=== PATIENT | female | born 1960 | race Asian ===

== ENCOUNTER → 2019-01-23 | Day surgery (SDC) | payer BC ==
[~2019-01-23] VITALS: Ht 160 cm; Wt 111.1 kg
[~2019-01-23] MED LIST: ACET-2178 PO; BACITRACIN 50,000 UNITS/VIAL ONE; BUPIVACAINE HCL 0.5% (5MG/ML) 50ML ONE; CEFAZOLIN SODIUM 1000MG/VIAL ONE; DEXAMETHASONE 4MG/ML 1ML VIAL ONE; FENTANYL CITRATE/PF 50MCG/ML 2ML VIAL ONE; GLYCOPYRROLATE 0.2 MG/ML 2ML VIAL ONE; HYDROMORPHONE HCL/PF 2MG/ML CPJ IV PRN; LABETALOL 5MG/ML SYR 20 MG/4 ML SYRINGE IV PRN; LIDOCAINE HCL 1% 20ML VIAL (Pyxis) INJ ONE; LOSA50TA41 PO; MEPERIDINE HCL/PF 25MG/ML CPJ IV PRN; METF-414 PO; MIDAZOLAM HCL 2 MG/2 ML VIAL ONE; NEOSTIGMINE METHYLSULFATE 1MG/ML 10 ML VIAL ONE; NORMAL SALINE 0.9% 10 ML SYR ONE; ONDANSETRON HCL 4MG/2ML INJ IV PRN; ONDANSETRON HCL 4MG/2ML INJ ONE; PROPOFOL 200MG/20ML VIAL IV ONE; ROCURONIUM BROMIDE 10MG/ML VIAL 5ML IV ONE; SKIN ADHESIVE 0.7 GM EA TOP ONE; SODIUM CHLORIDE 0.9% 1,000 ML IV SCH; SODIUM CHLORIDE 0.9% 10ML VIAL ONE
[2019-01-23 06:43] LABS: UCG SCREEN NEGATIVE
[2019-01-23 10:02] VITALS: BP 133/77
== END | disposition home or self-care (01) ==
LOC: OR 05:45
PROVIDERS: ATTEND Surgery
DX: N63.20 Unspecified lump in the left breast, unspecified quadrant (principal); D48.62 Neoplasm of uncertain behavior of left breast; I10 Essential (primary) hypertension; Z79.899 Other long term (current) drug therapy; Z79.84 Long term (current) use of oral hypoglycemic drugs
CPT/HCPCS: 19301; 81025; 88309; 88329; J0690; J1100; J1170; J2250; J2405; J2704; J3010; J3490; J2710

== ENCOUNTER 2022-05-17 20:34 | Inpatient (IN) | payer BC ==
[~2022-05-17] VITALS: Ht 160 cm; Wt 115.7 kg
[~2022-05-17 20:34] MED LIST changes: -ACET-2178 PO; -BACITRACIN 50,000 UNITS/VIAL ONE; -BUPIVACAINE HCL 0.5% (5MG/ML) 50ML ONE; -CEFAZOLIN SODIUM 1000MG/VIAL ONE; -DEXAMETHASONE 4MG/ML 1ML VIAL ONE; -FENTANYL CITRATE/PF 50MCG/ML 2ML VIAL ONE; -GLYCOPYRROLATE 0.2 MG/ML 2ML VIAL ONE; -HYDROMORPHONE HCL/PF 2MG/ML CPJ IV PRN; -LABETALOL 5MG/ML SYR 20 MG/4 ML SYRINGE IV PRN; -LIDOCAINE HCL 1% 20ML VIAL (Pyxis) INJ ONE; -MEPERIDINE HCL/PF 25MG/ML CPJ IV PRN; -MIDAZOLAM HCL 2 MG/2 ML VIAL ONE; -NEOSTIGMINE METHYLSULFATE 1MG/ML 10 ML VIAL ONE; -NORMAL SALINE 0.9% 10 ML SYR ONE; -ONDANSETRON HCL 4MG/2ML INJ IV PRN; -ONDANSETRON HCL 4MG/2ML INJ ONE; -PROPOFOL 200MG/20ML VIAL IV ONE; -ROCURONIUM BROMIDE 10MG/ML VIAL 5ML IV ONE; -SKIN ADHESIVE 0.7 GM EA TOP ONE; -SODIUM CHLORIDE 0.9% 1,000 ML IV SCH; -SODIUM CHLORIDE 0.9% 10ML VIAL ONE; +TOPUD PO
[2022-05-17] MEDS ORDERED: ASPIRIN 81MG TABLET PO ONE (21:15)
[2022-05-17 21:18] LABS: BASOPHILS % 0.7 % (0.0-2.0); EOSINOPHILS % 2.9 % (0.0-5.0); HEMATOCRIT. 34.5 % (36.0-48.0); HEMOGLOBIN. 10.6 g/dL (12.0-16.0); MEAN CORPUSCULAR HEMOGLOBIN 20.5 pg (28.0-32.0); MEAN CORPUSCULAR VOLUME 66.7 fL (81.0-99.0); MEAN PLATELET VOLUME 7.9 fl (7.4-10.4); MONOCYTES % 6.6 % (2.0-8.0); NEUTROPHILS % 54.8 % (40.0-76.0); PLATELET 397 x1000/uL (130-400); RED BLOOD CELL COUNT 5.17 mill/uL (4.2-5.4); RED CELL DISTRIBUTION WIDTH 19.3 % (11.6-14.6)
[2022-05-17 21:26] LABS: CHLORIDE 107 mEq/L (98-107)
[2022-05-17 21:45] LABS: PROTHROMBIN TIME 10.5 sec (9.6-11.0)
[2022-05-17] MEDS ORDERED: NITROGLYCERIN 0.4MG TABLET SL SL PRN (22:15)
[2022-05-17 23:14] LABS: PLATELET ESTIMATE NORMAL
[2022-05-18] MEDS ORDERED: REGADENOSON 0.4 MG/5 ML IV NR (10:30)
[2022-05-18] MEDS: LOSARTAN POTASSIUM 100 MG TABLET PO SCH (11:25)
[2022-05-18 16:00] VITALS: BP 179/75
[2022-05-18 17:24] VITALS: BP 179/75
[2022-05-18] MEDS ORDERED: ACETAMINOPHEN 325MG TABLET PO PRN (18:00)
[2022-05-18] MEDS ORDERED: ONDANSETRON HCL 4MG/2ML INJ IV PRN (18:00)
[2022-05-18] MEDS: ENOXAPARIN 30MG/0.3ML SYR SUBCUT SCH (18:00)
[2022-05-18] MEDS ORDERED: CLONIDINE 0.1MG TABLET PO PRN (18:00)
[2022-05-18 20:00] VITALS: BP 144/72
[2022-05-18] MEDS: AMLODIPINE 5MG TABLET PO SCH (21:22)
[2022-05-19] VITALS: BP 153/69
[2022-05-19 04:00] VITALS: BP 145/65
[2022-05-19 05:45] LABS: CHLORIDE 104 mEq/L (98-107)
[2022-05-19 05:56] LABS: BASOPHILS % 0.4 % (0.0-2.0); EOSINOPHILS % 3.7 % (0.0-5.0); HEMATOCRIT. 30.9 % (36.0-48.0); HEMOGLOBIN. 9.7 g/dL (12.0-16.0); LYMPHOCYTES % 33.4 % (20.0-50.0); MEAN CORPUSCULAR HEMOGLOBIN 20.7 pg (28.0-32.0); MEAN CORPUSCULAR VOLUME 66.3 fL (81.0-99.0); MEAN PLATELET VOLUME 8.4 fl (7.4-10.4); MONOCYTES % 6.5 % (2.0-8.0); PLATELET 348 x1000/uL (130-400); RED BLOOD CELL COUNT 4.66 mill/uL (4.2-5.4); RED CELL DISTRIBUTION WIDTH 19.5 % (11.6-14.6)
[2022-05-19] MEDS: ENOXAPARIN 30MG/0.3ML SYR SUBCUT SCH (05:56)
[2022-05-19 08:00] VITALS: BP 149/56
[2022-05-19 11:50] VITALS: BP 169/70
[2022-05-19] MEDS ORDERED: METOPROLOL TARTRATE 25MG TABLET PO NR (12:00)
[2022-05-19] MEDS: LOSARTAN POTASSIUM 100 MG TABLET PO SCH (12:58)
[2022-05-19] MEDS: AMLODIPINE 5MG TABLET PO SCH (12:58)
[2022-05-19 15:32] VITALS: BP 130/87
[2022-05-19 16:00] VITALS: BP 137/84
== END 2022-05-19 16:20 | disposition home or self-care (01) | DRG 206 ==
LOC: ER 20:53 → MICUSO 23:41 → EDBEDREQ 23:44 → EDBEDREQTM 23:44 → 7WST 05-18 16:31
PROVIDERS: ADMIT Internal Medicine; ATTEND Internal Medicine
DX: M94.0 Chondrocostal junction syndrome [Tietze] (principal); Z68.42 Body mass index [BMI] 45.0-49.9, adult; J45.909 Unspecified asthma, uncomplicated; E66.9 Obesity, unspecified; Z20.822 Contact with and (suspected) exposure to COVID-19; E11.9 Type 2 diabetes mellitus without complications; I10 Essential (primary) hypertension; Z79.899 Other long term (current) drug therapy; Z79.84 Long term (current) use of oral hypoglycemic drugs; Z72.0 Tobacco use; Z82.49 Family history of ischemic heart disease and other diseases of the circulatory system
CPT/HCPCS: 36415; 71045; 80048; 80053; 80061; 83036; 83880; 84484; 85025; 87426; 93005; 93306; 99291; C9803; J1650